=== PATIENT | female | born 1980 | race Caucasian/White ===

== ENCOUNTER 2017-06-09 11:04 | Emergency (ER) | payer SELFPAY ==
[~2017-06-09] VITALS: Ht 167.6 cm; Wt 115.0 kg
[~2017-06-09 11:04] MED LIST: IBUP-232 PO; RANI150C PO
[2017-06-09 11:07] VITALS: BP 190/95; PULSE 75; RESP 20; TEMP 98.8; O2SAT 96
--- NOTE | 2017-06-09 11:10 | PD ---
Physical Exam Time Seen by Provider: 11:09 Narrative 37yo F c/ generalized abd pain x 2 weeks. Went away and started again last night. +n w/o vomiting. Denies fever, diarrhea. Hasn't had menses in years. Has IUD. Patient seen in triage. VS reviewed. Awaiting be placement. Data Data Last Documented VS Vital Signs Date Time Temp Pulse Resp B/P (MAP) Pulse Ox O2 Delivery O2 Flow Rate FiO2 06/09/17 11:07 98.8 75 20 190/95 (126) 96 Room Air MDM Supervised Visit with JIN: Marialuisa Valdivia Jun 09, 2017 11:10
[2017-06-09] MEDS ORDERED: ONDANSETRON HCL 4 MG/2 ML VIAL IVP ONE (11:45)
[2017-06-09] MEDS ORDERED: DICYCLOMINE HCL 20 MG/2 ML VIAL IM ONE (11:45)
[2017-06-09] MEDS ORDERED: SODIUM CHLORIDE 0.9% FLUSH 10 ML FLUSH IV FLUSH PRN (11:45)
[2017-06-09 11:50] VITALS: RESP 16; O2SAT 99
--- NOTE | 2017-06-09 11:50 | PD ---
HPI Chief Complaint: Abdominal Pain Time Seen by Provider: 11:22 Travel History International Travel<30 days: No Contact w/Intl Traveler<30days: No Traveled to known affect area: No History of Present Illness HPI Patient is a 37-year-old female presenting for evaluation of abdominal pain, nausea and episode of vomiting. Patient states it started last night, she states the abdominal pain is diffuse in nature and at times she will have a stabbing pain in her sides. She vomited once last night and states it was yellow emesis. Patient similar pain 2 weeks ago that lasted for 3 days and resolved on its own. Patient denies any fever, chills, ages in bowel habits. There are no exacerbating or alleviating factors, patient states she is able to eat. Patient denies any significant past medical history. She rates her pain a 7 out of 10. PFSH Past Medical History Medical History: Denies Significant Hx Diminished Hearing: No GERD: Yes Tetanus Vaccination: > 5 Years Influenza Vaccination: Yes ?: Not LMP: iud : 3 Para: 1 Dilation and Curettage (D&C): Yes Past Surgical History Section: Yes Social History Alcohol Use: Yes (RARE) Tobacco Use: No (quit one month ) Substance Use: No (pt denies) Allergies-Medications (Allergen,Severity, Reaction): Coded Allergies: No Known Allergies (Unverified , 06/09/17) Reported Meds & Prescriptions Reported Meds & Active Scripts Active Reported Ranitidine (Ranitidine HCl) 150 Mg Cap 150 Mg PO DAILY Review of Systems Except as stated in HPI: all other systems reviewed are Neg Gastrointestinal: Positive: Nausea, Vomiting, Abdominal Pain Physical Exam Narrative GENERAL: Morbidly obese, well-developed, well nourished, alert female. Resting comfortably in no acute distress. SKIN: Warm and dry. HEAD: Atraumatic. Normocephalic. EYES: Pupils equal and round. No scleral icterus. No injection or drainage. ENT: No nasal bleeding or discharge. Mucous membranes pink and moist. NECK: Trachea midline. No JVD. CARDIOVASCULAR: Regular rate and rhythm. RESPIRATORY: No accessory muscle use. Clear to auscultation. Breath sounds equal bilaterally. GASTROINTESTINAL: Abdomen soft, non-tender, nondistended. Hepatic and splenic margins not palpable. Positive bowel sounds, no rebound, no guarding. MUSCULOSKELETAL: Extremities without clubbing, cyanosis, or edema. No obvious deformities. NEUROLOGICAL: Awake and alert. No obvious cranial nerve deficits. Motor grossly within normal limits. Five out of 5 muscle strength in the arms and legs. Normal speech. PSYCHIATRIC: Appropriate mood and affect; insight and judgment normal. Data Data Last Documented VS Vital Signs Date Time Temp Pulse Resp B/P (MAP) Pulse Ox O2 Delivery O2 Flow Rate FiO2 06/09/17 11:50 16 99 Room Air 06/09/17 11:07 98.8 75 Orders Orders Complete Blood Count With Diff (06/09/17 11:31) Comprehensive Metabolic Panel (06/09/17 11:31) Lipase (06/09/17 11:31) Urinalysis - C+S If Indicated (06/09/17 11:31) Iv Access Insert/Monitor (06/09/17 11:31) Ecg Monitoring (06/09/17 11:31) Oximetry (06/09/17 11:31) Ondansetron Inj (Zofran Inj) (06/09/17 11:45) Sodium Chloride 0.9% Flush (Ns Flush) (06/09/17 11:45) Dicyclomine Inj (Bentyl Inj) (06/09/17 11:45) Ed Urine Pregnancytest Poc (06/09/17 11:31) Labs Laboratory Tests Test 06/09/17 11:40 White Blood Count 8.3 TH/MM3 Red Blood Count 4.90 MIL/MM3 Hemoglobin 14.5 GM/DL Hematocrit 42.7 % Mean Corpuscular Volume 87.1 FL Mean Corpuscular Hemoglobin 29.6 PG Mean Corpuscular Hemoglobin Concent 34.0 % Red Cell Distribution Width 13.1 % Platelet Count 294 TH/MM3 Mean Platelet Volume 8.3 FL Neutrophils (%) (Auto) 67.9 % Lymphocytes (%) (Auto) 22.8 % Monocytes (%) (Auto) 6.9 % Eosinophils (%) (Auto) 2.0 % Basophils (%) (Auto) 0.4 % Neutrophils # (Auto) 5.6 TH/MM3 Lymphocytes # (Auto) 1.9 TH/MM3 Monocytes # (Auto) 0.6 TH/MM3 Eosinophils # (Auto) 0.2 TH/MM3 Basophils # (Auto) 0.0 TH/MM3 CBC Comment DIFF FINAL Differential Comment Urine Color LIGHT-YELLOW Urine Turbidity HAZY Urine pH 6.5 Urine Specific [place] 1.013 Urine Protein NEG mg/dL Urine Glucose (UA) NEG mg/dL Urine Ketones NEG mg/dL Urine Occult Blood NEG Urine Nitrite NEG Urine Bilirubin NEG Urine Urobilinogen LESS THAN 2.0 MG/DL Urine Leukocyte Esterase NEG Urine RBC 1 /hpf Urine WBC 2 /hpf Urine Squamous Epithelial Cells 5 /hpf Urine Bacteria RARE /hpf Microscopic Urinalysis Comment CULT NOT INDICATED Blood Urea Nitrogen 13 MG/DL Creatinine 0.59 MG/DL Random Glucose 91 MG/DL Total Protein 6.7 GM/DL Albumin 3.2 GM/DL Calcium Level 8.6 MG/DL Alkaline Phosphatase 78 U/L Aspartate Amino Transf (AST/SGOT) 25 U/L Alanine Aminotransferase (ALT/SGPT) 27 U/L Total Bilirubin 0.3 MG/DL Sodium Level 138 MEQ/L Potassium Level 4.2 MEQ/L Chloride Level 105 MEQ/L Carbon Dioxide Level 24.2 MEQ/L Anion Gap 9 MEQ/L Estimat Glomerular Filtration Rate 113 ML/MIN Lipase 117 U/L [facility] Medical Decision Making Medical Screen Exam Complete: Yes Emergency Medical Condition: Yes Interpretation(s) Vital Signs Date Time Temp Pulse Resp B/P (MAP) Pulse Ox O2 Delivery O2 Flow Rate FiO2 06/09/17 11:16 17 06/09/17 11:07 98.8 75 20 190/95 (126) 96 Room Air Differential Diagnosis Gastritis versus irritable bowel syndrome versus gastroenteritis versus cholecystitis versus other Narrative Course Patient is a 37-year-old female that presented to the emergency provider diffuse abdominal pain, nausea, vomiting that started last night. Patient had similar symptoms 2 weeks ago that resolved on their own. Abdominal exam is essentially benign and unremarkable. We'll assess labs and urinalysis. Patient 's vital signs are stable. CBC, chemistry, urinalysis reviewed and are unremarkable. Patient was given Zofran and Bentyl in the emergency department. She has not had any further vomiting. Patient appears well, nontoxic. She is ambulatory in the emergency department. Patient was reassessed and she reports improvement in her abdominal pain. Patient was reassured that there was no acute findings at this time. She is encouraged to maintain a bland, low residue diet. She is advised to avoid caffeinated products, spicy, fried, fatty foods. She was given strict return precautions. She was encouraged to follow up with a junior oracle dba and her primary doctor. Patient verbalized understanding of discharge instructions. Patient is stable for discharge. Diagnosis Primary Impression: Symptoms consistent with irritable bowel syndrome Referrals: Bilingual Sales Representative Primary Care Physician Patient Instructions: Diet for Stomach Ulcers and Gastritis (ED), Gastritis (ED ), General Instructions, Irritable Bowel Syndrome (ED) Additional Instructions: Follow-up with your primary doctor Follow-up with a junior oracle dba Take medications as needed and as directed Return to emergency department immediately for any new or worsening symptoms Avoid spicy, fried, fatty foods. Avoid acidic fruits and juices, caffeinated products. Med/Other Pt SpecificInfo: Prescription(s) given Scripts Ondansetron Odt (Zofran Odt) 4 Mg Tab 4 MG SL Q6HR Y for Nausea/Vomiting, #12 TAB 0 Refills Prov: Gale Rader 06/09/17 Dicyclomine (Bentyl) 10 Mg Cap 10 MG PO TID Y for Bowel Management for 10 Days, CAP 0 Refills Prov: Gale Rader 06/09/17 Disposition: 01 DISCHARGE HOME Condition: Stable Gale Rader Jun 09, 2017 11:50
[2017-06-09 12:07] LABS: AUTOMATED NEUTROPHIL # 5.6 TH/MM3 (1.8-7.7); BASOPHIL % 0.4 % (0.0-2.0); EOSINOPHIL # 0.2 TH/MM3 (0-0.4); HEMATOCRIT 42.7 % (35.0-46.0); HEMO FLAGS DIFF FINAL; LYMPH % 22.8 % (9.0-44.0); LYMPHOCYTE # 1.9 TH/MM3 (1.0-4.8); MEAN CELL VOLUME 87.1 FL (80.0-100.0); MEAN CORPUSCULAR HEMOGLOBIN 29.6 PG (27.0-34.0); MONO % 6.9 % (0.0-8.0); NEUT % 67.9 % (16.0-70.0); PLATELET COUNT 294 TH/MM3 (150-450); RED CELL DISTRIBUTION WIDTH 13.1 % (11.6-17.2); WHITE BLOOD COUNT 8.3 TH/MM3 (4.0-11.0)
[2017-06-09 12:10] LABS: BACTERIA, URINE RARE /hpf; BLOOD, URINE NEG (NEG); COMMENT (UR) CULT NOT INDICATED; CULTURE IF INDICATED CULT NOT INDICATED; GLUCOSE,URINE NEG (NEG); KETONE, URINE NEG (NEG); NITRITE,URINE NEG (NEG); PH, URINE 6.5 (5.0-8.5); SQUAMOUS EPITHELIAL CELL URINE 5 /hpf (0-5); URINE COLOR LIGHT-YELLOW (YELLW/STRAW)
[2017-06-09 12:33] LABS: ALT (GPT) 27 U/L (10-53)
[2017-06-09 12:34] LABS: ANION GAP 9 MEQ/L (5-15); AST (GOT) 25 U/L (15-37); BICARBONATE 24.2 MEQ/L (21.0-32.0); BLOOD UREA NITROGEN 13 MG/DL (7-18); CHLORIDE 105 MEQ/L (98-107); GLOMERULAR FILTRATION RATE 113 ML/MIN (>89); POTASSIUM 4.2 MEQ/L (3.5-5.1); SODIUM (NA) 138 MEQ/L (136-145)
[2017-06-09 12:36] LABS: ALKALINE PHOSPHATASE 78 U/L (45-117); TOTAL BILIRUBIN ADULT 0.3 MG/DL (0.2-1.0)
[2017-06-09] MEDS ORDERED: ZOFR4TAB3 SL (13:00)
[2017-06-09] MEDS ORDERED: DICY10 PO (13:00)
[2017-06-09 13:19] VITALS: BP 150/78; TEMP 97.8
--- NOTE | 2017-06-09 13:48 | PD ---
Data Data Last Documented VS Vital Signs Date Time Temp Pulse Resp B/P (MAP) Pulse Ox O2 Delivery O2 Flow Rate FiO2 06/09/17 13:19 97.8 84 16 150/78 (102) 99 06/09/17 11:50 Room Air Orders Orders Complete Blood Count With Diff (06/09/17 11:31) Comprehensive Metabolic Panel (06/09/17 11:31) Lipase (06/09/17 11:31) Urinalysis - C+S If Indicated (06/09/17 11:31) Iv Access Insert/Monitor (06/09/17 11:31) Ecg Monitoring (06/09/17 11:31) Oximetry (06/09/17 11:31) Ondansetron Inj (Zofran Inj) (06/09/17 11:45) Sodium Chloride 0.9% Flush (Ns Flush) (06/09/17 11:45) Dicyclomine Inj (Bentyl Inj) (06/09/17 11:45) Ed Urine Pregnancytest Poc (06/09/17 11:31) Labs Laboratory Tests Test 06/09/17 11:40 White Blood Count 8.3 TH/MM3 Red Blood Count 4.90 MIL/MM3 Hemoglobin 14.5 GM/DL Hematocrit 42.7 % Mean Corpuscular Volume 87.1 FL Mean Corpuscular Hemoglobin 29.6 PG Mean Corpuscular Hemoglobin Concent 34.0 % Red Cell Distribution Width 13.1 % Platelet Count 294 TH/MM3 Mean Platelet Volume 8.3 FL Neutrophils (%) (Auto) 67.9 % Lymphocytes (%) (Auto) 22.8 % Monocytes (%) (Auto) 6.9 % Eosinophils (%) (Auto) 2.0 % Basophils (%) (Auto) 0.4 % Neutrophils # (Auto) 5.6 TH/MM3 Lymphocytes # (Auto) 1.9 TH/MM3 Monocytes # (Auto) 0.6 TH/MM3 Eosinophils # (Auto) 0.2 TH/MM3 Basophils # (Auto) 0.0 TH/MM3 CBC Comment DIFF FINAL Differential Comment Urine Color LIGHT-YELLOW Urine Turbidity HAZY Urine pH 6.5 Urine Specific [place] 1.013 Urine Protein NEG mg/dL Urine Glucose (UA) NEG mg/dL Urine Ketones NEG mg/dL Urine Occult Blood NEG Urine Nitrite NEG Urine Bilirubin NEG Urine Urobilinogen LESS THAN 2.0 MG/DL Urine Leukocyte Esterase NEG Urine RBC 1 /hpf Urine WBC 2 /hpf Urine Squamous Epithelial Cells 5 /hpf Urine Bacteria RARE /hpf Microscopic Urinalysis Comment CULT NOT INDICATED Blood Urea Nitrogen 13 MG/DL Creatinine 0.59 MG/DL Random Glucose 91 MG/DL Total Protein 6.7 GM/DL Albumin 3.2 GM/DL Calcium Level 8.6 MG/DL Alkaline Phosphatase 78 U/L Aspartate Amino Transf (AST/SGOT) 25 U/L Alanine Aminotransferase (ALT/SGPT) 27 U/L Total Bilirubin 0.3 MG/DL Sodium Level 138 MEQ/L Potassium Level 4.2 MEQ/L Chloride Level 105 MEQ/L Carbon Dioxide Level 24.2 MEQ/L Anion Gap 9 MEQ/L Estimat Glomerular Filtration Rate 113 ML/MIN Lipase 117 U/L [facility] Supervised Visit with JIN: Yes Narrative Course The history, exam, and medical decision-making in the associated mid-level provider note were completed with my assistance. I reviewed and agree with the findings presented. I attest that I had a [id number] encounter with the patient on the same day, and personally performed and documented my assessment and findings in the medical record. *My assessment and Findings: 37 year-old woman, well-appearing so abdominal pain. Benign abdominal exam. Recommend against imaging at this point. Supportive treatment. Diagnosis Primary Impression: Symptoms consistent with irritable bowel syndrome Referrals: Manager Competitive Intelligence Primary Care Physician Patient Instructions: General Instructions, Gastritis (ED), Irritable Bowel Syndrome (ED), Diet for Stomach Ulcers and Gastritis (ED) Departure Forms: Tests/Procedures Additional Instruction: Follow-up with your primary doctor Follow-up with a manager packaging Take medications as needed and as directed Return to emergency department immediately for any new or worsening symptoms Avoid spicy, fried, fatty foods. Avoid acidic fruits and juices, caffeinated products. Scripts Ondansetron Odt (Zofran Odt) 4 Mg Tab 4 MG SL Q6HR Y for Nausea/Vomiting, #12 TAB 0 Refills Prov: Gale Rader 06/09/17 Dicyclomine (Bentyl) 10 Mg Cap 10 MG PO TID Y for Bowel Management for 10 Days, CAP 0 Refills Prov: Gale Rader 06/09/17 Disposition: 01 DISCHARGE HOME Condition: Stable Ricardo Raymond MD Jun 09, 2017 13:48
== END 2017-06-09 13:19 | disposition home or self-care (01) ==
LOC: NEPD 11:04
DX: K58.9 Irritable bowel syndrome, unspecified (principal); K21.9 Gastro-esophageal reflux disease without esophagitis
CPT/HCPCS: 80053; 81001; 83690; 84703; 85025; 96372; 96374; 99284; J0500; J2405

== ENCOUNTER 2018-03-02 11:30 | Emergency (ER) | payer SELFPAY ==
[~2018-03-02] VITALS: Ht 170.2 cm; Wt 128.0 kg
[~2018-03-02 11:30] MED LIST changes: +DICY10 PO; -IBUP-232 PO; +ZOFR4TAB3 SL
[2018-03-02 11:51] VITALS: BP 145/74; PULSE 77; RESP 16; TEMP 98.6; O2SAT 99
--- NOTE | 2018-03-02 12:06 | PD ---
HPI Chief Complaint: Fall Time Seen by Provider: 11:55 Travel History International Travel<30 days: No Contact w/Intl Traveler<30days: No Traveled to known affect area: No History of Present Illness HPI 37-year-old female presents to the emergency department for evaluation after a fall that occurred yesterday around 8 AM. She states that she tripped over her sandal landing on her right side. Patient denies any head injury or LOC. No midline neck or back pain. Patient reports right-sided pain, right elbow pain, right wrist pain, right knee pain. She has been ambulatory. Patient states the worst of her pain is in her right knee. She rates a 5/10, aching and throbbing, without radiation. She has no chronic medical problems and takes no prescribed medications. She denies any chance of . Ambulation, movement will exacerbate the pain. No alleviating factors. She had ibuprofen yesterday for the pain. She states that the symptoms started gradually. Mild severity. PFSH Past Medical History Diminished Hearing: No GERD: Yes ?: Not LMP: IUD IN PLACE. : 3 Para: 1 Dilation and Curettage (D&C): Yes Past Surgical History Section: Yes Social History Alcohol Use: Yes (RARE) Tobacco Use: No (quit one month ) Substance Use: No (pt denies) Allergies-Medications (Allergen,Severity, Reaction): Coded Allergies: No Known Allergies (Unverified , 06/09/17) Reported Meds & Prescriptions Reported Meds & Active Scripts Active Reported Nexium (Esomeprazole DR) Unknown Strength Capdr Unknown Dose PO DAILY Review of Systems Except as stated in HPI: all other systems reviewed are Neg Physical Exam Narrative GENERAL: Well-nourished, well-developed morbidly obese female patient, ambulatory. Afebrile. SKIN: Focused skin assessment warm/dry. HEAD: Normocephalic. Atraumatic. ENT: Mucosa pink and moist. No erythema or exudates. No uvular edema. No uvular , palatal, or tonsillar deviation. Airway patent. Nasal turbinates appear normal without nasal blood, purulent drainage or septal hematoma. Bilateral tympanic membranes clear without erythema or perforation. EYES: No scleral icterus. No injection or drainage. NECK: Supple, trachea midline. No JVD or lymphadenopathy. CARDIOVASCULAR: Regular rate and rhythm without murmurs, gallops, or rubs. Bilateral radial and pedal pulses are 2+ RESPIRATORY: Breath sounds equal bilaterally. No accessory muscle use. Lung sounds are clear to auscultation peer GASTROINTESTINAL: Abdomen soft, non-tender, nondistended. MUSCULOSKELETAL: No cyanosis, or edema. No bony point tenderness over right elbow or right wrist. She has full flexion-extension without pain or stiffness. She does have tenderness over the right anterior knee. She has full flexion-extension, but pain with flexion. No other bony point tenderness. BACK: Nontender without obvious deformity. No CVA tenderness. No midline spinal tenderness. Data Data Last Documented VS Vital Signs Date Time Temp Pulse Resp B/P (MAP) Pulse Ox O2 Delivery O2 Flow Rate FiO2 03/02/18 11:51 98.6 77 16 145/74 (97) 99 Orders Orders Knee, Complete (4vws) (03/02/18 ) Ibuprofen (Motrin) (03/02/18 12:15) Methocarbamol (Robaxin) (03/02/18 12:15) [facility] Medical Decision Making Medical Screen Exam Complete: Yes Emergency Medical Condition: Yes Medical Record Reviewed: Yes Interpretation(s) Last Impressions Knee X-Ray 03/02/18 0000 Impressions: CONCLUSION: 1. No acute fracture or joint dislocation. 2. Mild degenerative arthritis. Differential Diagnosis Contusion versus fracture versus sprain Narrative Course 37-year-old female presents to the emergency department for evaluation after a trip and fall that occurred yesterday morning. She appears well on exam. X- ray of the right knee is ordered and pending. Patient is given ibuprofen 800 mg p.o., Robaxin 500 mg p.o. X-ray of the right knee shows no acute fracture. Patient is provided Loy bandage. She is instructed to ice, elevate. She will be discharged prescription for ibuprofen and Robaxin. The patient was discharged in stable condition with instructions, including return instructions and follow up instructions. Diagnosis Primary Impression: Right knee sprain Qualified Codes: S83.91XA - Sprain of unspecified site of right knee, initial encounter Referrals: Primary Care Physician call for appointment Patient Instructions: General Instructions, Knee Sprain (ED) Departure Forms: Tests/Procedures, Work Release Enter return to work date: March 04, 2018 Additional Instructions: Ice for 20 minutes 4-5 times daily Wear Loy bandage as needed for support. Elevate. Take ibuprofen as directed as needed with food for pain. Take Robaxin as directed as needed. Follow-up with a primary care physician. Return to the emergency department for any acute worsening of symptoms. Med/Other Pt SpecificInfo: Prescription(s) given Scripts Methocarbamol (Robaxin) 750 Mg Tab 750 MG PO TID Y for MUSCLE SPASM, #21 TAB 0 Refills Prov: Bebe Garibay 03/02/18 Ibuprofen (Ibuprofen) 800 Mg Tab 800 MG PO TID Y for PAIN SCALE 1 TO 10, #21 TAB 0 Refills Prov: Bebe Garibay 03/02/18 Disposition: 01 DISCHARGE HOME Condition: Stable Bebe Garibay March 02, 2018 12:06
[2018-03-02] MEDS ORDERED: NEXI20CA PO (12:07)
[2018-03-02] MEDS ORDERED: METHOCARBAMOL 500 MG TAB PO ONE (12:15)
[2018-03-02] MEDS ORDERED: IBUPROFEN 800 MG TAB PO ONE (12:15)
--- NOTE | 2018-03-02 12:48 | RADRPT ---
EXAM DATE: 03/02/2018 12:31 PM EDT AGE/SEX: 37 years / Female INDICATIONS: Fall. Right knee pain. CLINICAL DATA: This is the patient's initial encounter. Patient reports that signs and symptoms have been present for 2 days and indicates a pain score of 7/10. MEDICAL/SURGICAL HISTORY: None. None. denies - shielded COMPARISON: No prior exams available for comparison. FINDINGS: Bony structures are intact and in normal alignment. Joints are intact without dislocation. There are mild degenerative changes at the knee joint. There is no evidence of any significant joint effusion. Osseous density is normal. Soft tissues are unremarkable. No radiopaque foreign bodies seen. CONCLUSION: 1. No acute fracture or joint dislocation. 2. Mild degenerative arthritis. Electronically signed by: Jv Diaz MD 03/02/2018 12:47 PM EDT
[2018-03-02] MEDS ORDERED: IBUP1TAB7 PO (12:51)
[2018-03-02] MEDS ORDERED: ROBA750T PO (12:51)
== END 2018-03-02 13:23 | disposition home or self-care (01) ==
LOC: NEPK 11:30
DX: S83.91XA Sprain of unspecified site of right knee, initial encounter (principal); E66.01 Morbid (severe) obesity due to excess calories; K21.9 Gastro-esophageal reflux disease without esophagitis; W01.0XXA Fall on same level from slipping, tripping and stumbling without subsequent striking against object, initial encounter; Z87.891 Personal history of nicotine dependence; Z79.899 Other long term (current) drug therapy
CPT/HCPCS: 73564; 99283